=== PATIENT | female | born 1990 | race Caucasian/White ===

== ENCOUNTER 2017-07-09 19:28 | Emergency (ER) | payer OTHER ==
[~2017-07-09] VITALS: Ht 160 cm; Wt 57.8 kg
[~2017-07-09 19:28] MED LIST: ATARAX,VISTARIL50 MG PO; ATENOLOL50 MG PO; METHIMAZOLE10 MG PO; PREDNISONE10 MG PO; ZOFRAN ODT4 MG PO
[2017-07-09 19:58] LABS: HEMATOCRIT 42.4 % (36.0-46.0); MCH 30.2 PG (29.0-34.0); MCHC 35.8 G/DL (30.0-36.0); MCV 84.3 FL (83-99); MEAN PLAT.VOLUME 10.5 uM^3 (9.5-12.4); PLATELET COUNT 195 K/uL (156-360); RBC DIS.WIDTH-CV 11.4 % (11.8-14.6); RBC DIS.WIDTH-SD 34.8 % (39-53); RED BLOOD COUNT 5.03 M/uL (3.80-5.20); WHITE BLOOD COUNT 7.3 K/uL (4.1-10.2)
[2017-07-09 20:07] LABS: CHLORIDE 105 mEq/L (99-109); POTASSIUM 3.3 mEq/L (3.7-5.4); SODIUM 138 mEq/L (136-147)
[2017-07-09 20:08] LABS: GLUCOSE 103 mg/dL (70-99)
[2017-07-09 20:10] LABS: ANION GAP 14 MEQ/L (2-14)
[2017-07-09 20:12] LABS: GFR ESTIMATE (CALCULATED) > 59 mL/min/
[2017-07-09 20:13] LABS: UREA NITROGEN (BUN) 9 mg/dL (9-23)
[2017-07-09 20:22] VITALS: BP 00/0
== END 2017-07-09 20:24 | disposition left against medical advice (07) ==
LOC: EME 19:28
DX: R56.9 Unspecified convulsions (principal); Z53.21 Procedure and treatment not carried out due to patient leaving prior to being seen by health care provider
CPT/HCPCS: 80048; 85027; 93005; 99281; 99284

== ENCOUNTER 2018-05-21 19:55 | Emergency (ER) | payer OTHER ==
[~2018-05-21] VITALS: Ht 162.6 cm; Wt 63.5 kg
[2018-05-21 21:57] VITALS: BP 115/94
== END 2018-05-21 22:02 | disposition home or self-care (01) ==
LOC: EME → EDBD 19:55 → EDSEX 19:55 → EME 22:02
DX: S16.1XXA Strain of muscle, fascia and tendon at neck level, initial encounter (principal); V49.40XA Driver injured in collision with unspecified motor vehicles in traffic accident, initial encounter; Y92.410 Unspecified street and highway as the place of occurrence of the external cause; E05.00 Thyrotoxicosis with diffuse goiter without thyrotoxic crisis or storm; F17.200 Nicotine dependence, unspecified, uncomplicated
CPT/HCPCS: 99281; 99284